=== PATIENT | male | born 1945 | race Caucasian/White ===

== ENCOUNTER 2020-02-10 09:04 | Day surgery (SDC) | payer MEDICARE ==
[~2020-02-10] VITALS: Ht 172.7 cm; Wt 96.6 kg
[2020-02-10] VITALS (14 sets, daily range): BP systolic 100–130; BP diastolic 49–98
[2020-02-10] MEDS ORDERED: MIDAZolam 1mg/ml 10ml vial IV ONE (09:45)
[2020-02-10] MEDS ORDERED: fentaNYL/PF 50MCG/1 ML 2ML syringe IV ONE (09:45)
[2020-02-10] MEDS ORDERED: LEVO50TA8 PO (09:47)
[2020-02-10] MEDS ORDERED: DILT120C94 PO (09:53)
[2020-02-10] MEDS ORDERED: METF-900 PO (09:53)
[2020-02-10] MEDS ORDERED: RIVA20TA PO (09:53)
[2020-02-10] MEDS ORDERED: CELE-193 PO (09:53)
[2020-02-10] MEDS ORDERED: LORA-512 PO (09:53)
[2020-02-10] MEDS ORDERED: FLEC100T2 PO (09:53)
[2020-02-10] MEDS ORDERED: TADA20TA PO (09:53)
[2020-02-10 10:31] LABS: BASOPHILS % (AUTO) 0.4 % (0-1); EOSINOPHILS # (AUTO) 0.1 X10'3 (0-0.9); EOSINOPHILS % (AUTO) 1.1 % (0-6); HEMATOCRIT 44.4 % (42.0-52.0); HEMOGLOBIN 14.9 g/dl (14.0-17.9); LYMPHOCYTES # (AUTO) 0.9 X10'3 (1.1-4.8); LYMPHOCYTES % (AUTO) 16.1 % (21-51); MEAN CORPUSCULAR HEMOGLOBIN 31.3 PG (27.0-31.0); MEAN CORPUSCULAR HGB CONC 33.5 g/dL (33.0-36.5); MEAN CORPUSCULAR VOLUME 93.5 FL (78-98); MEAN PLATELET VOLUME 9.8 FL (7.4-10.4); MONOCYTES # (AUTO) 0.6 X10'3 (0-0.9); MONOCYTES % (AUTO) 10.1 % (2-12); NEUTROPHILS # (AUTO) 4.1 X10'3 (1.8-7.7); NEUTROPHILS % (AUTO) 72.3 % (42-75); PLATELET COUNT 124 X10'3 (140-440); RED BLOOD COUNT 4.75 X10'6 (4.70-6.10); RED CELL DISTRIBUTION WIDTH 13.7 % (11.5-14.5); WHITE BLOOD COUNT 5.7 X10'3 (4.5-11.0)
[2020-02-10 10:40] LABS: ALBUMIN 3.4 G/DL (3.4-5.0); ANION GAP 9 (8-16); BLOOD UREA NITROGEN 22 MG/DL (7-18); BUN/CREATININE RATIO 23.7 (5.4-32.0); CALCIUM 8.2 MG/DL (8.5-10.1); CHLORIDE 113 MMOL/L (99-107); CREATININE 0.93 MG/DL (0.60-1.10); GLUCOSE 111 MG/DL (70-104); MAGNESIUM 1.9 MG/DL (1.5-2.4); POTASSIUM 3.9 MMOL/L (3.5-5.1); SODIUM 145 MMOL/L (135-145); TOTAL CARBON DIOXIDE 22.7 MMOL/L (24-32); eGFR 80 ML/MIN
== END 2020-02-10 14:10 | disposition home or self-care (01) ==
LOC: SSTAY O 09:04
PROVIDERS: ATTEND Internal Medicine Cardiovascular Disease
DX: I48.19 Other persistent atrial fibrillation (principal); E11.9 Type 2 diabetes mellitus without complications; Z72.89 Other problems related to lifestyle; Z88.8 Allergy status to other drugs, medicaments and biological substances; Z98.890 Other specified postprocedural states; Z85.46 Personal history of malignant neoplasm of prostate; Z79.84 Long term (current) use of oral hypoglycemic drugs; Z79.01 Long term (current) use of anticoagulants; Z79.899 Other long term (current) drug therapy; Z82.3 Family history of stroke; Z82.49 Family history of ischemic heart disease and other diseases of the circulatory system; Z82.61 Family history of arthritis
CPT/HCPCS: 36415; 80048; 82948; 83735; 85025; 85610; 92960; 93005; 94799; J2250; J3010

== ENCOUNTER 2022-03-07 11:07 | Day surgery (SDC) | payer MEDICARE ==
[2022-03-07] VITALS (12 sets, daily range): BP systolic 104–135; BP diastolic 61–82
[~2022-03-07] VITALS: Ht 172.7 cm; Wt 93.0 kg
[~2022-03-07 11:07] MED LIST: CELE-193 PO; DILT120C94 PO; FLEC100T2 PO; LEVO50TA8 PO; LORA-512 PO; METF-900 PO; RIVA20TA PO; TADA20TA PO
[2022-03-07] MEDS ORDERED: normal saline 1000ml 1,000 ML IV SCH (11:35)
[2022-03-07] MEDS ORDERED: fentaNYL/PF 50MCG/1 ML 2ML syringe IV ONE (11:35)
[2022-03-07] MEDS ORDERED: MIDAZolam 1mg/ml 10ml vial IV ONE (11:35)
[2022-03-07 12:00] LABS: BASOPHILS % (AUTO) 0.6 % (0-1); EOSINOPHILS # (AUTO) 0.1 X10'3 (0-0.9); EOSINOPHILS % (AUTO) 1.7 % (0-6); HEMATOCRIT 45.4 % (42.0-52.0); HEMOGLOBIN 15.2 g/dl (14.0-17.9); LYMPHOCYTES % (AUTO) 15.4 % (21-51); MEAN CORPUSCULAR HEMOGLOBIN 31.2 PG (27.0-31.0); MEAN CORPUSCULAR HGB CONC 33.5 g/dL (33.0-36.5); MEAN CORPUSCULAR VOLUME 93.1 FL (78-98); MEAN PLATELET VOLUME 9.3 FL (7.4-10.4); MONOCYTES # (AUTO) 0.8 X10'3 (0-0.9); MONOCYTES % (AUTO) 12.3 % (2-12); NEUTROPHILS # (AUTO) 4.3 X10'3 (1.8-7.7); PLATELET COUNT 144 X10'3 (140-440); RED BLOOD COUNT 4.88 X10'6 (4.70-6.10); RED CELL DISTRIBUTION WIDTH 13.9 % (11.5-14.5); WHITE BLOOD COUNT 6.2 X10'3 (4.5-11.0)
[2022-03-07 12:11] LABS: ALBUMIN 3.7 G/DL (3.4-5.0); BLOOD UREA NITROGEN 20 MG/DL (7-18); BUN/CREATININE RATIO 17.7 (5.4-32.0); CALCIUM 9.4 MG/DL (8.5-10.1); CREATININE 1.13 MG/DL (0.60-1.10); GLUCOSE 84 MG/DL (70-104); MAGNESIUM 2.2 MG/DL (1.5-2.4); TOTAL CARBON DIOXIDE 24.4 MMOL/L (24-32); eGFR 63 ML/MIN
[2022-03-07] MEDS ORDERED: LORA10TA7 PO (12:23)
[2022-03-07] MEDS ORDERED: ROSU10TA28 PO (12:23)
[2022-03-07 13:20] LABS: ANION GAP 8 (8-16); CHLORIDE 110 MMOL/L (99-107); POTASSIUM 4.5 MMOL/L (3.5-5.1); SODIUM 142 MMOL/L (135-145)
== END 2022-03-07 14:30 | disposition home or self-care (01) ==
LOC: SSTAY O 11:07
PROVIDERS: ATTEND Internal Medicine Cardiovascular Disease
DX: I48.0 Paroxysmal atrial fibrillation (principal); E11.9 Type 2 diabetes mellitus without complications; E78.00 Pure hypercholesterolemia, unspecified; Z79.01 Long term (current) use of anticoagulants; Z79.899 Other long term (current) drug therapy; Z98.890 Other specified postprocedural states; Z72.89 Other problems related to lifestyle; Z88.8 Allergy status to other drugs, medicaments and biological substances; Z79.84 Long term (current) use of oral hypoglycemic drugs; Z82.3 Family history of stroke; Z82.49 Family history of ischemic heart disease and other diseases of the circulatory system; Z82.61 Family history of arthritis
CPT/HCPCS: 36415; 80048; 82948; 83735; 85025; 85610; 92960; 93005; J2250; J3010; J7030; A4620